=== PATIENT | female | born 2000 | race Caucasian/White ===

== ENCOUNTER 2022-05-29 16:33 | Emergency (ER) | payer OTHER, SELFPAY ==
[2022-05-29 16:52] VITALS: BP 144/98; PULSE 99; RESP 16; TEMP 37; O2SAT 100
--- NOTE | 2022-05-29 17:09 | ED.URI ---
HPI - URI/Sore Throat General Chief Complaint: Upper Respiratory Infection Stated Complaint: feels like asthma attack , cough Source: patient Mode of arrival: ambulatory Limitations: no limitations History of Present Illness HPI Narrative: 22-year-old female presented for complaint of ?asthma flare. ? she endorses history of severe asthma, and has been compliant with the use of Breo inhaler. She endorses coughing, wheezing, occasional chest tightness and pain consistent deep breaths. She endorses the need for her rescue inhaler over the past 24 hours. She reports she has had contact cats and dogs, stating they are triggers. Taking daily claritin. Related Data Home Medications Medication Instructions Recorded Confirmed albuterol sulfate 90 mcg/actuation 2 inh inhalation DIRECTED 05/29/22 05/29/22 aerosol inhaler fluticasone furoate 100 1 inh inhalation DAILY 05/29/22 05/29/22 mcg-vilanterol 25 mcg/dose inhalation powder (Breo Ellipta) norethindrone 1 mg-ethinyl 1 tablet PO DAILY 05/29/22 05/29/22 estradiol 20 mcg (21)-iron 75 mg (7) tablet ([place] Fe 06/18 (28)) Allergies Allergy/AdvReac Type Severity Reaction Status Date / Time amoxicillin Allergy Rash Verified 05/29/22 17:00 Review of Systems Review of Systems: CONSTITUTIONAL: Denies body aches, fever, chills, or sweats. EYES: Denies visual changes, redness, or discharge. ENT: Denies rhinorrhea, congestion, sore throat, or otalgia. CARDIOVASCULAR: Denies chest pain, palpitations, or edema. RESPIRATORY: Reports cough, sob, wheezing. GASTROINTESTINAL: Denies abdominal pain, nausea, vomiting, or diarrhea. GENITOURINARY: Denies dysuria or hematuria. SKIN: Denies rash, itching, or wounds. MUSCULOSKELETAL: Denies back pain, joint pain, or myalgia. NEUROLOGIC: Denies headache, numbness, tingling, or weakness. All systems reviewed & are unremarkable except as noted in HPI and below [facility] Comments At time of signature, I have reviewed and agree with nursing past medical, surgical, social and family history unless otherwise noted. Please see nursing chart for further information. There is no relevant family history pertinent to the presenting complaint Exam Narrative: GENERAL: Well-appearing, in no acute distress. EYES: EOMI. No redness or drainage. Conjunctivae normal. ENT: Mucous membranes pink and moist. No rhinorrhea. TMs normal bilaterally. Throat normal. Uvula midline. NECK: Normal AROM. Supple. CHEST: No respiratory distress. Lungs clear to all correa. HEART: Regular rate and rhythm. No murmur appreciated. ABDOMEN: Soft, nontender, nondistended, normal active bowel sounds. EXTREMITIES: Normal range of motion. No edema. SKIN: Warm, dry, no rash. Capillary refill normal. Normal skin turgor. NEURO: Alert and oriented x3. Gait steady. PSYCH: Normal affect. Course Course Emergency Course: Patient is aware of diagnosis, understands and agrees to treatment plan. Anticipatory guidance given. Patient agrees to follow-up as directed and is aware of reasons to seek care at the emergency department. Portions of this record may have been created with voice recognition software Level of Care: Express Care Visit Vital Signs Vital signs: Vital Signs Temperature 98.6 F 05/29/22 16:52 Pulse Rate 99 05/29/22 16:52 Respiratory Rate 16 05/29/22 16:52 Blood Pressure 144/98 H 05/29/22 16:52 Pulse Oximetry 100 05/29/22 16:52 Temperature 98.6 F 05/29/22 16:52 Pulse Rate 99 05/29/22 16:52 Respiratory Rate 16 05/29/22 16:52 Blood Pressure 144/98 H 05/29/22 16:52 Pulse Oximetry 100 05/29/22 16:52 MDM - URI/Sore Throat MDM Narrative Medical decision making narrative: Patient is well appearing. Lungs clear, o2 sat 100% RA. Will send Rx steroid. Advised supportive measures and signs/symptoms to go to the ER. Pt is appropriate for outpt treatment and f/u. Differential Diagnosis Differential diagnosis:
[2022-05-29] MEDS: predniSONE 20 MG TABLET 60 MG PO (17:29)
== END 2022-05-29 17:31 | disposition home or self-care (01) ==
PROVIDERS: Emergency Provider Nurse Practitioner Family
DX: R05.9 Cough, unspecified (principal); Z82.5 Family history of asthma and other chronic lower respiratory diseases; J45.909 Unspecified asthma, uncomplicated
CPT/HCPCS: 99203; G0463; J7512